=== PATIENT | female | born 1965 | race Caucasian/White ===

== ENCOUNTER 2019-05-11 00:08 | Emergency (ER) | payer MEDICAID ==
[2019-05-11] MEDS: DEXAMETHASONE 10 MG/ML 1 ML INJ IM (01:05)
[2019-05-11] MEDS: IPRATROPIUM (NEB) 0.5 MG/2.5 ML AMP INH (01:07)
[2019-05-11] MEDS: ALBUTEROL 0.5% (NEB) 2.5 MG/0.5 ML AMP INH (01:07)
== END 2019-05-11 02:48 | disposition home or self-care (01) ==
LOC: FTE 00:08
DX: J45.901 Unspecified asthma with (acute) exacerbation (principal); E11.9 Type 2 diabetes mellitus without complications
CPT/HCPCS: 71045; 94644; 96372; 99284-25